=== PATIENT | male | born 1965 | race Caucasian/White ===

== ENCOUNTER 2017-03-26 23:55 | Emergency (ER) | payer OTHER ==
[~2017-03-26 23:55] MED LIST: ASAB PO; BUPROPRION; BUSPAR10 PO; CARVEDILOL; CELEXA20 PO; CO Q-10100 MG PO; COQ 10; COREG25 PO; FISH-EPA1000 MG PO; HYDROCHLOROT12.5 MG PO; KLONO1 PO; LEXAPRO20 PO; LISINOPRIL40 MG PO; NIASPAN500 PO; PRIN20 PO; PROTONIX PO; RAN500 PO; VYTORIN 10/40 T1 TAB PO; WELLSR100 PO; ZESTORETIC PO
[2017-03-27 01:33] LABS: ASCORBIC ACID (UR NOT ORDER) 40 (NEG); BILIRUBIN, URINE NEGATIVE (NEG); ER URINALYSIS TAT 0 Hrs 09 Mins; KETONE, URINE TRACE MG/DL (NEG); LEUKOCYTE ESTERASE(NOT OR NEG (NEG); NITRITE (URINE) NEG (NEG); WBC (NOT ORDERED) (RFLEX) 3 (0-5)
== END 2017-03-27 02:00 | disposition home or self-care (01) ==
LOC: ER 23:55
PROVIDERS: Specialist
DX: M54.6 Pain in thoracic spine (principal); I10 Essential (primary) hypertension; F17.200 Nicotine dependence, unspecified, uncomplicated; Z95.5 Presence of coronary angioplasty implant and graft; Z95.810 Presence of automatic (implantable) cardiac defibrillator; Z87.442 Personal history of urinary calculi; Z88.5 Allergy status to narcotic agent; Z79.82 Long term (current) use of aspirin; Z79.891 Long term (current) use of opiate analgesic; Z79.899 Other long term (current) drug therapy
CPT/HCPCS: 81001; 96372; 99283; J1885